=== PATIENT | male | born 1970 | race Caucasian/White ===

== ENCOUNTER 2017-02-24 06:33 | Emergency (ER) | payer MEDICAID, OTHER ==
[~2017-02-24] VITALS: Ht 177.8 cm; Wt 106.1 kg
[2017-02-24 06:35] VITALS: BP 155/101
[2017-02-24] MEDS ORDERED: LOSA50TA6 PO (06:43)
[2017-02-24] MEDS ORDERED: LOSARTIN (06:43)
== END 2017-02-24 07:22 | disposition home or self-care (01) ==
LOC: ED 07:00
DX: G51.0 Bell's palsy (principal); I10 Essential (primary) hypertension; Z87.891 Personal history of nicotine dependence
CPT/HCPCS: 99283